=== PATIENT | female | born 1975 | race Caucasian/White ===

== ENCOUNTER 2019-01-19 17:53 | Emergency (ER) | payer OTHER ==
[2019-01-19 18:03] VITALS: BP 106/73; PULSE 77; TEMP 98.1; BMI 24.8
== END 2019-01-19 19:20 | disposition left against medical advice (07) ==
LOC: JER 17:53
DX: Z53.21 Procedure and treatment not carried out due to patient leaving prior to being seen by health care provider (principal)
CPT/HCPCS: 99281-25